=== PATIENT | male | born 2000 | race Two or more races ===

== ENCOUNTER 2022-05-10 20:57 | Emergency (ER) | payer SELFPAY ==
[2022-05-10 21:38] LABS: ESTIMATED GFR 58 mL/min (>60)
== END 2022-05-11 00:10 ==
LOC: JD.ED 20:57
DX: T40.2X1A Poisoning by other opioids, accidental (unintentional), initial encounter (principal); V47.5XXA Car driver injured in collision with fixed or stationary object in traffic accident, initial encounter; Y92.410 Unspecified street and highway as the place of occurrence of the external cause
CPT/HCPCS: 36415; 80053; 80307; 85025; 99284